=== PATIENT | male | born 1985 | race Caucasian/White ===

== ENCOUNTER 2022-04-06 02:51 | Emergency (ER) | payer MEDICAID, OTHER ==
[~2022-04-06] VITALS: Ht 175.3 cm; Wt 120.7 kg
--- NOTE | 2022-04-06 03:25 | NUR ---
BIBFRIEND C/O R FOOT PAIN X1 NIGHT. HX GOUT. 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 AAOX4, Came in via wheelchair with pain rated as 10/10. Able to make needs known. Placed in comfortable position. Vitals checked.
[2022-04-06] MEDS ORDERED: COLCHICINE 0.6 MG TABLET ONE (03:51)
[2022-04-06] MEDS ORDERED: KETOROLAC TROMETHAMINE INJ 30 MG/ML VIAL ONE (03:51)
[2022-04-06] MEDS ORDERED: KETOROLAC TROMETHAMINE INJ 60 MG/2 ML VIAL IM ONE (04:00)
[2022-04-06] MEDS ORDERED: COLCHICINE 0.6 MG TABLET PO ONE (04:00)
[2022-04-06] MEDS ORDERED: COLC0.6C3 PO (04:21)
--- NOTE | 2022-04-06 04:29 | NUR ---
Patient discharged to home in stable condition via w/c. Written and verbal after care instructions given. Patient verbalizes understanding of instruction. Friend picked up pt for DC
[2022-04-06 04:31] VITALS: BP 118/71
== END 2022-04-06 04:32 | disposition home or self-care (01) ==
LOC: ER 02:54
DX: M10.9 Gout, unspecified (principal)
CPT/HCPCS: 99283; 96372; J1885